=== PATIENT | female | born 1995 ===

== ENCOUNTER 2017-08-02 15:55 | Emergency (ER) | payer MEDICAID, OTHER ==
[2017-08-02 16:09] VITALS: RESP 18
[2017-08-02 17:01] LABS: HCG,QUALITATIVE URINE NEGATIVE (NEGATIVE)
[2017-08-02 17:03] LABS: SQUAMOUS EPITHIAL 17 /hpf (0-5); URINE BACTERIA FEW (<OCC); URINE BILIRUBIN NEGATIVE (NEGATIVE); URINE BLOOD NEGATIVE (NEGATIVE); URINE CLARITY Hazy (Clear); URINE COLOR Yellow (YELLOW); URINE GLUCOSE (UA) NORMAL (Normal); URINE LEUKOCYTE ESTERASE TRACE Leu/uL (Negative); URINE NITRATE NEGATIVE (NEGATIVE); URINE PROTEIN NEGATIVE (NEGATIVE); URINE UROBILINOGEN NORMAL mg/dL (0.2-1.0)
[2017-08-02] MEDS ORDERED: Sodium Chloride 0.9% 1,000 ML IV ONE (17:14)
[2017-08-02] MEDS ORDERED: Sodium Chloride 0.9% 1,000 ML ONE (17:33)
[2017-08-02 17:34] LABS: BASO % 0.1 % (0.0-2.0); EOS % 0.4 % (0.0-4.0); HEMOGLOBIN 14.3 g/dL (11.0-16.0); LYMPH # 0.7 K/uL (1.0-4.3); LYMPH % 5.9 % (20.0-40.0); MEAN CELL VOLUME 89.5 fL (81.0-99.0); MEAN CORPUSCULAR HEMOGLOBIN 30.4 pg (27.0-31.0); MONO # 0.6 K/uL (0.0-0.8); MONO % 5.2 % (0.0-10.0); NEUT # 10.6 K/uL (1.8-7.0); NEUT % 88.4 % (50.0-75.0); PLATELET COUNT 259 K/uL (130-400); RED CELL DISTRIBUTION WIDTH 13.2 % (11.5-14.5)
[2017-08-02 17:49] LABS: ALB/GLOB RATIO 1.4 (1.0-2.1); ALBUMIN 4.4 g/dL (3.5-5.0); ALT/SGPT 17 U/L (9-52); AMYLASE 72 U/L (30-110); AST/SGOT 21 U/L (14-36); BLOOD UREA NITROGEN 11 mg/dL (7-17); CALCIUM 9.3 mg/dl (8.6-10.4); GFR AFRICAN-AMERICAN > 60; GFR NON-AFRICAN AMERICAN > 60; LIPASE 156 U/L (23-300)
[2017-08-02 18:18] LABS: EOSINOPHIL 2 % (0-4); LYMPHOCYTE 4 % (20-40); MONOCYTE 2 % (0-10); NEUTROPHIL 92 % (50-75); PLATELET ESTIMATE NORMAL (NORMAL); TOTAL CELLS COUNTED 100
--- NOTE | 2017-08-02 18:33 | C.PDOC ---
History Of Present Illness 21 y/o female presents to the ER complaining of epigastric pain which developed since last night associated nausea, few episodes of non-bilious vomiting and 4- 5 episodes of watery , non-bloody diarrhea. Patient denies high fever, chills, headache, dizziness, sore throat, neck pain, CP, SOB, cough, dyspnea, palpitation, back pain, UTi sx, hematuria. Ambulate to ED for evaluation, not in any apparent distress. Time Seen by Provider: 08/02/17 16:38 Chief Complaint (Nursing): Abdominal Pain History Per: Patient History/Exam Limitations: no limitations Onset/Duration Of Symptoms: Days Current Symptoms Are (Timing): Still Present Severity: Moderate Location Of Pain/Discomfort: Epigastric Past Medical History Reviewed: Historical Data, Nursing Documentation, Vital Signs Vital Signs: Last Vital Signs Temp 98.6 F 08/02/17 18:51 Pulse 69 08/02/17 18:51 Resp 18 08/02/17 18:51 BP 117/80 08/02/17 18:51 Pulse Ox 99 08/02/17 19:00 - Medical History PMH: Denies: Crohn's Disease Surgical History: No Surg Hx - [facility] Procedures INJECT/INFUSE NEC (08/20/14) TETANUS TOXOID ADMINIST (05/16/14) Family History: States: No Known Family Hx - Social History Hx Tobacco Use: Yes Hx Alcohol Use: Yes Hx Substance Use: No - Immunization History Hx Tetanus Toxoid Vaccination: No Hx Influenza Vaccination: No Hx Pneumococcal Vaccination: No Review Of Systems Except As Marked, All Systems Reviewed And Found Negative. Constitutional: Negative for: Fever, Chills Eyes: Negative for: Vision Change ENT: Negative for: Throat Pain, Throat Swelling Cardiovascular: Negative for: Chest Pain Respiratory: Negative for: Cough, Shortness of Breath, Wheezing Gastrointestinal: Positive for: Nausea, Vomiting, Abdominal Pain, Diarrhea Genitourinary: Negative for: Dysuria, Frequency, Vaginal Discharge, Vaginal Bleeding Musculoskeletal: Negative for: Neck Pain, Back Pain Skin: Negative for: Rash Neurological: Negative for: Weakness, Numbness, Altered Mental Status, Dizziness Physical Exam - Physical Exam Appears: Well, Non-toxic, No Acute Distress Skin: Normal Color, Warm, Dry, No Rash Head: Normacephalic Eye(s): bilateral: PERRL Nose: No Flaring, No Discharge Oral Mucosa: Moist Throat: No Erythema, No Drooling Neck: Trachea Midline, Supple Cardiovascular: Rhythm Regular Respiratory: No Decreased Breath Sounds, No Accessory Muscle Use, No Stridor, No Wheezing Gastrointestinal/Abdominal: Bowel Sounds, Soft, Tenderness (mild epigastric tenderness), No Distention, No Guarding, No Rebound Back: No CVA Tenderness Extremity: Normal ROM, No Deformity, No Swelling Neurological/Psych: Oriented x3, Normal Speech, Normal Motor, Normal Sensation, Normal Reflexes ED Course And Treatment - Laboratory Results Result Diagrams: 08/02/17 17:30 08/02/17 17:30 Lab Interpretation: No Acute Changes Urine POC: Negative O2 Sat by Pulse Oximetry: 99 (RA) Pulse Ox Interpretation: Normal Progress Note: Pt was OBS in ED for 2 hours and reports moderate improvement in sx. On re-evaluation, pt reports, " have no abdominal pain any more". Pt is afebrile, hemodynamicaly stable. non-toxic. Pt was given Poi challenge and tolerated well. PUlseOx 99% RA. ENT: no acute findings. neck: Supple, (-) meningeal sign. Lungs: CTA B/L, BS equal B/L. Abd: soft, (-) guarding, (-) rebound. back: (-) CVA tenderness. Blood work review and compare to previous results, appears at baseline. UA normal, preg (-). results review and discussed with pt. Pt has clinical findings c/w epigastric pain, V/D. Pt advised. ref. to f/u with PMD, GI in 2-3 days for re-eval. return to ED if anyw orsening or new changes. Disposition Counseled Patient/Family Regarding: Studies Performed, Diagnosis, Need For Followup, Rx Given - Disposition Referrals: [facility] [Outside] Blanquita Ashby [Staff Provider] - Disposition: HOME/ ROUTINE Disposition Time: 18:30 Condition: STABLE Additional Instructions: BRAT diet- banana, rice, apple sauce, toast for 2-3 days Take medication as prescribed Follow up with PMD, [employer] Operator in 2-3 days for re-evaluation. return to ED if any worsening or new changes. Prescriptions: Famotidine [Pepcid] 20 mg PO BID #14 tab Pantoprazole Sodium [Protonix] 40 mg PO DAILY #20 ect Instructions: Gastritis, Diarrhea in Adolescents and Adults, Nausea and Vomiting, Adult (DC) Forms: [facility] (Serbian) - Clinical Impression Clinical Impression: Epigastric pain, Vomiting, Diarrhea - PA / SLED [employer]KER / Resident Statement MD/DO has reviewed & agrees with the documentation as recorded. - Scribe Statement The provider has reviewed the documentation as recorded by the Umeshibe Zuri Bradley Provider Attestation All medical record entries made by the Umeshibe were at my direction and personally dictated by me. I have reviewed the chart and agree that the record accurately reflects my personal performance of the history, physical exam, medical decision making, and the department course for this patient. I have also personally directed, reviewed, and agree with the discharge instructions and disposition.
[2017-08-02 18:52] VITALS: BP 117/80; PULSE 69; TEMP 98.6; O2SAT 99
== END 2017-08-02 18:51 | disposition home or self-care (01) ==
LOC: C.ER 15:55
DX: R10.13 Epigastric pain (principal); R11.10 Vomiting, unspecified; R19.7 Diarrhea, unspecified
CPT/HCPCS: 80053; 81001; 82150; 83690; 84703; 85025; 96361; 96374; 96375; 99284; C9113; J2405; J7040